=== PATIENT | female | born 1960 | race Two or more races ===

== ENCOUNTER 2024-07-12 10:12 | Emergency (ER) | payer MEDICAID, SELFPAY ==
[2024-07-12 10:41] VITALS: BP 129/72; PULSE 56; RESP 18; TEMP 36.5; O2SAT 97
[2024-07-12 10:49] VITALS: PULSE 88; RESP 20; BMI 27.4
--- NOTE | 2024-07-12 11:22 | EDNOTE_ITS ---
ED General RME/HPI General Chief complaint: Abdominal Pain Stated complaint: ABDOMINAL PAIN Time Seen by Provider: 07/12/24 11:17 Arrival date/time: 07/12/24 10:12 CC: Epigastric pain HPI be strong of epigastric pain onset at 8:00 this morning. The patient is a prior history of similar events that were all either from gallstones or from an inflamed pancreas. Patient was given fentanyl Zofran. And Tylenol and route. Currently patient has mild nausea pain is a 5 or 6 currently but was a 10 upon arrival. Related Data Previous Rx's ?Medication ?Instructions ?Recorded Sulfamethoxazole/Trimethoprim DS * 1 tab PO BID #14 tabs 12/11/14 (BACTRIM DS *) pantoprazole 20 mg tablet,delayed 20 mg PO QDAY #30 tabs 07/12/24 release (Protonix) Allergies Allergy/AdvReac Type Severity Reaction Status Date / Time NKA* Allergy Uncoded 12/11/14 15:07 Review of Systems Review of Systems Narrative Review of Systems: GEN: No fever, no chills, no weight loss EYES: No discharge, no visual changes, no pain HEENT: No ear pain, no congestion, no sore throat PULM: No shortness of breath, no cough, no congestion CV: No chest pain, no dyspnea on exertion, no palpitations GI: No nausea, no vomiting, no diarrhea, + pain, no constipation : No frequency, no urgency, no dysuria MUSC/SKEL: No joint pain, no back pain SKIN: No rash PSYCH: No hallucinations, no depression HEME/LYMPH: No easy bleeding or bruising tendencies NEURO: No weakness, no headache Past Medical History Past Medical History CARDIAC: Negative Congestive Heart Failure RESPIRATORY: Negative Chronic Obstructive Pulmonary Disease (COPD) GENITOURINARY: Negative Renal Disease ENDOCRINE: Negative Diabetes Mellitus Type 1 or Diabetes Mellitus Type 2 Family History FAMILY HISTORY: Negative Family Cardiac Disorders Social History SMOKING STATUS: Never smoker ED Exam Narrative Physical exam: [General: Obese in mild discomfort but not in any acute distress Head normocephalic HEENT: Within acceptable limits Neck is supple nontender Chest equal chest rise nontender to palpation Respiratory: Clear to auscultation no wheezes crackles or rubs CV: Rate rhythm is regular no murmurs rubs or clicks Abdomen is soft, epigastric pain with palpation no reflexive guarding rebound tenderness, no masses positive bowel sounds all 4 quadrants Back: No CVA tenderness no spinous process tenderness from cervical spine thoracic and lumbar spine Skin: Intact no petechiae rash induration ulceration or crepitus Extremities: Moving all extremity against resistance cap refill less than 2 seconds neurosensory intact Neuro: Awake alert oriented x3 Glascow coma 15 no focal deficits] Course Quality Measures none Orders Category Date Time Status EKG (ED ONLY) *Do not use* NOW Care 07/12/24 11:[address] abdomen pelvis wo con Stat Exams 07/12/24 12:45 Completed EKG (ED Only) Stat Exams 07/12/24 11:24 Ordered B-Type Natriuretic Peptide Stat Lab 07/12/24 11:45 Completed CBC Stat Lab 07/12/24 11:45 Completed Comprehensive Metabolic Panel Stat Lab 07/12/24 11:45 Completed Drug Screen,Urine Stat Lab 07/12/24 14:16 Received Lipase Stat Lab 07/12/24 11:45 Completed Magnesium Stat Lab 07/12/24 11:45 Completed Partial Thromboplastin Time Stat Lab 07/12/24 11:45 Completed Prothrombin Time with INR Stat Lab 07/12/24 11:45 Completed Troponin I Stat Lab 07/12/24 11:45 Completed Urinalysis Stat Lab 07/12/24 14:16 Completed Famotidine Inj [Pepcid Inj] Med 07/12/24 12:47 Discontinued 20 mg IVP X1 ONE mg Hyd/Al Hyd/Prasanth Susp [Maalox Susp] Med 07/12/24 12:47 Discontinued 30 ml PO X1 ONE Vital Signs Vital signs: Vital Signs Temperature 97.7 F 07/12/24 10:41 Pulse Rate 56 L 07/12/24 10:41 Respiratory Rate 18 07/12/24 10:41 Blood Pressure 129/72 07/12/24 10:41 Pulse Oximetry (%) 97 07/12/24 10:41 Oxygen Delivery Method Room Air 07/12/24 10:41 [facility] Patient data External records reviewed:: [facility] [place] records and EMS form Clinical information provided by:: patient and EMS Social determinants that could affect healthcare access:: none Patient has the following chronic illnesses:: None How is presenting disease/condition affected by chronic disease/condition?: u neffected by Evaluation data The following diagnostics were reviewed and interpreted by me:: lab results and radiology exam(s) Lab and/or radiology exams considered but not ordered:: CBC shows no acute leukocytosis anemia thrombocytopenia CMP shows no acute electrolyte imbalances renal impairment transaminitis or T. bili elevation Lipase is within acceptable limits CT of the abdomen pelvis shows the patient has suspected hepatocellular disease but no other acute finding requires emergent or immediate intervention. Urine is negative Interpretation Summary: Patient has no acute finding but has a decrease in pain secondary to medications given this time patient be discharged home with epigastric pain. Patient advised to not eat greasy spicy or fatty foods and take medications as prescribed Medications Medications considered but not ordered:: None Medication administrations:: Medication Administration History Discontinued Medications Al Hydrox/Mg Hydrox/Simethicone (Mg Hyd/Al Hyd/Prasanth (Maalox Reg) Susp 30 Ml Udc) 30 ml PO X1 ONE Stop: 07/12/24 12:48 Famotidine (Famotidine Inj 10 Mg/Ml Vial 2 Ml) 20 mg IVP X1 ONE Stop: 07/12/24 12:48 None Consultations Consultation(s) initiated? (list below): No Diagnosis Differential Diagnosis ED Complaint MDM: Cholelithiasis cholecystitis gastritis Most likely diagnosis given after review of the tests above:: Cholelithiasis, gastritis Admission Indicated Admission indicated?: not indicated Explain why admission is indicated or not indicated:: Stable for outpatient follow-up Admission Request Was there a request for admission?: No Disposition Plan Disposition Plan: Discharge Discharge Attestation Discharge Attestation: The patient and all family members were given an opportunity to ask questions and understood the discharge instructions. Discharge instructions specifically effects, indications for sooner follow up or return to the emergency department, and the expected course of current diagnosis. Patient condition: Stable Medical Decision Making Differential Diagnosis Differential Diagnosis: Cholelithiasis cholecystitis gastritis Lab Data 07/12/24 11:45 07/12/24 11:45 Labs: Lab Results 07/12/24 07/12/24 Range/Units 11:45 14:16 WBC 11.9 H (3.6-11.0) Thou/mm3 RBC 4.17 (4.00-5.20) Miln/mm3 Hgb 12.0 (12.0-16.0) g/dL Hct 36.4 (36.0-46.0) % MCV 87 (80-100) fL MCH 28.8 (25.0-35.0) pg MCHC 33.0 (31.0-37.0) g/dl RDW Std Deviation 41.8 (36.4-46.3) fL Plt Count 266 (140-440) Thou/mm3 Neut % (Auto) 79 (37-80) % Lymph % (Auto) 14 (10-50) % [place] % (Auto) 5 (0-12) % Eos % (Auto) 1 (0-10) % Baso % (Auto) 0 (0-2.5) % Neut # (Auto) 9.3 H (1.8-7.7) Thou/mm3 Lymph # (Auto) 1.7 (1.0-4.8) Thou/mm3 [place] # (Auto) 0.6 (0.0-0.8) Thou/mm3 Eos # (Auto) 0.2 (0.0-0.5) Thou/mm3 Baso # (Auto) 0.0 (0.0-0.2) Thou/mm3 Immature Gran # (Auto) 0.05 H (0.00-0.00) Thou/mm3 Absolute Nucleated RBC 0.00 (0.00-0.00) Thou/mm3 Immature Gran % 0 (0-0) % Nucleated RBC % 0 (0) /100 WBC PT 10.3 (9.0-12.2) Seconds INR 0.9 (0.9-1.3) APTT 25.3 (22.0-36.0) Seconds Sodium 136 (136-145) mMol/L Potassium 3.4 (3.4-5.1) mMol/L Chloride 108 H (98-107) mMol/L Carbon Dioxide 23.7 (20.0-31.0) mMol/L Anion Gap 4 L (7-16) BUN 19 (9-23) mg/dL Creatinine 0.4 L (0.6-1.3) mg/dL Estim Creat Clear Calc 130.2 (>60) mL/min eGFR > 60 (60 - ) See Note BUN/Creatinine Ratio 48 H (12-20) Ratio Glucose 102 (74-106) mg/dL Calculated Osmolality 274 L (275-295) Calcium 9.0 (8.3-10.6) mg/dL Corrected Calcium 9.0 (8.5-10.1) mg/dL Magnesium 1.9 (1.6-2.6) mg/dL Total Bilirubin 0.5 (0.3-1.2) mg/dL AST 49 H (0-34) U/L ALT 39 (10-49) U/L Alkaline Phosphatase 135 H (46-116) U/L Troponin I < 0.002 (0.0-0.045) ng/mL B-Natriuretic Peptide 40 (0-100) pg/mL Total Protein 6.9 (5.7-8.2) gm/dL Albumin 4.1 (3.4-4.8) gm/dL Globulin 2.8 (2.3-3.5) gm/dL Albumin/Globulin Ratio 1.5 (1.2-2.2) Lipase 26 (12-53) U/L Ur Collection Type Clean Catch Urine Color Lt-Yellow (Lt Yel-Yel) Urine Clarity Clear (Clear/Hazy) Urine pH 6.0 (5.0-7.0) Ur Specific Jones 1.020 (1.001-1.035) Urine Protein Negative (Neg - Trace) Urine Glucose (UA) Negative (Negative) Urine Ketones Negative (Negative) Urine Blood 1+ A (Negative) Urine Nitrite Negative (Negative) Urine Bilirubin Negative (Negative) Urine Urobilinogen (Auto) Negative (0.0-1.0) mg/dL Ur Leukocyte Esterase Positive (Negative) Urine RBC 6 H (0-3) /hpf Urine WBC 7 H (0-5) /hpf Ur Squamous Epith Cells 6 H (0-5) /hpf Urine Bacteria Rare (None) Discharge Plan Plan Patient Disposition: HOME (Self Care) Patient condition on transfer: Stable Prescriptions/Referrals Prescriptions/Med Rec: New pantoprazole [Protonix] 20 mg tablet,delayed release (DR/EC) 20 mg PO QDAY Qty: 30 0RF No Action Sulfamethoxazole/Trimethoprim DS * (BACTRIM DS *) 1 TAB tablet 1 tab PO BID Qty: 14 0RF Referrals: Aditya Herrera MD [Primary Care Provider] - In 1 week Problem List Clinical Impression: Gastroenteritis Patient/Caregiver Discharge Instructions Education Materials: ED Gastroenteritis, Noninfectious, ED Diet, [place] (Adult) Additional Instructions: Avoid greasy spicy fatty foods take the medication as prescribed there is a worsening of symptoms follow-up with your primary care provider or return the emergency room for reevaluation. Print Language: Tanzanian Stand Alone Forms: [employer] Award Info., Patient Portal Info Letter, Work/School Release PA/POWER LINEWORKER Supervising Physician VALERIO/POWER LINEWORKER Supervising Physician: David Howard ENP
[2024-07-12 11:54] LABS: Basophils % (Auto) 0 % (0-2.5); Eosinophils # (Auto) 0.2 Thou/mm3 (0.0-0.5); Eosinophils % (Auto) 1 % (0-10); Hematocrit 36.4 % (36.0-46.0); Immature Granulocytes % (Auto) 0 % (0-0); Immature Granulocytes Auto 0.05 Thou/mm3 (0.00-0.00); Lymphocytes # (Auto) 1.7 Thou/mm3 (1.0-4.8); Lymphocytes % (Auto) 14 % (10-50); Mean Corpuscular Hemoglobin 28.8 pg (25.0-35.0); Mean Corpuscular Volume 87 fL (80-100); Monocytes # (Auto) 0.6 Thou/mm3 (0.0-0.8); Monocytes % (Auto) 5 % (0-12); Neutrophils # (Auto) 9.3 Thou/mm3 (1.8-7.7); Neutrophils % (Auto) 79 % (37-80); Nucleated Red Blood Cell % 0 /100 WBC (0); Platelet Count 266 Thou/mm3 (140-440); RDW Standard Deviation 41.8 fL (36.4-46.3); Red Blood Count 4.17 Miln/mm3 (4.00-5.20); White Blood Count 11.9 Thou/mm3 (3.6-11.0)
[2024-07-12 12:14] LABS: INR 0.9 (0.9-1.3); Partial Thromboplastin Time 25.3 Seconds (22.0-36.0); Prothrombin Time 10.3 Seconds (9.0-12.2)
[2024-07-12 12:21] LABS: B-Type Natriuretic Peptide 40 pg/mL (0-100)
[2024-07-12 12:23] LABS: Alanine Aminotransferase 39 U/L (10-49); Albumin, Serum 4.1 gm/dL (3.4-4.8); Albumin/Globulin Ratio 1.5 (1.2-2.2); Alkaline Phosphatase 135 U/L (46-116); Anion Gap 4 (7-16); Aspartate Amino Transferase 49 U/L (0-34); BUN/Creatinine Ratio 48 Ratio (12-20); Bilirubin,Total 0.5 mg/dL (0.3-1.2); Blood Urea Nitrogen 19 mg/dL (9-23); Carbon Dioxide 23.7 mMol/L (20.0-31.0); Chloride 108 mMol/L (98-107); Creatinine (Component) 0.4 mg/dL (0.6-1.3); Estimated Creatinine Clearance 130.2 mL/min (>60); Globulin 2.8 gm/dL (2.3-3.5); Glucose 102 mg/dL (74-106); Lipase 26 U/L (12-53); Magnesium 1.9 mg/dL (1.6-2.6); Osmolality,Calculated 274 (275-295); Potassium 3.4 mMol/L (3.4-5.1); Sodium 136 mMol/L (136-145); Total Protein 6.9 gm/dL (5.7-8.2); Troponin I < 0.002 ng/mL (0.0-0.045); eGFR > 60 See Note
--- NOTE | 2024-07-12 12:45 | XR_ITS ---
Examination: CT abdomen and pelvis without contrast. Coronal 3-D reconstructions. Sagittal 2-D reconstructions. Date and time of exam:July 12, 2024 1342 hours INDICATIONS: Onset upper abdominal pain beginning 3 days ago CTDI: vol (mGy): 8.4 DLP: (mGycm): 479 Technique: Axial images of the abdomen have been obtained, 3 mm slice thickness Intravenous contrast material has not been administered. Low dose protocols were performed. One or more of the following dose reduction techniques were used; automated exposure control, adjustment of the mA and/or KV according to patient size, use of iterative reconstruction technique. Findings: Liver mildly irregular in contour Cholelithiasis Spleen not enlarged No pancreatic or adrenal mass No renal or ureteral calculi, no hydronephrosis No pericecal inflammatory change Colonic diverticulosis, no diverticulitis Partially retroverted uterus with no pelvic mass Bladder intact Grade 1 spondylolisthesis L5 on S1 IMPRESSION: Suspect primary hepatocellular disease Cholelithiasis, recommend hepatobiliary sonography follow-up No CT findings of appendicitis bowel obstruction or diverticulitis
[2024-07-12 14:36] LABS: Collection Type, Urine Clean Catch
[2024-07-12 14:45] LABS: Bacteria,Urine Rare; Bilirubin,Urine Negative (Negative); Blood,Urine 1+ (Negative); Clarity,Urine Clear (Clear/Hazy); Color,Urine Lt-Yellow (Lt Yel-Yel); Glucose, Urine Negative (Negative); Ketones,Urine Negative (Negative); Leukocyte Esterase,Urine Positive (Negative); Nitrite,Urine Negative (Negative); Protein,Urine Negative (Neg - Trace); RBC,Urine 6 /hpf (0-3); Squamous Epithelial Cell,Urine 6 /hpf (0-5); Urobilinogen,Urine Negative mg/dL (0.0-1.0); WBC,Urine 7 /hpf (0-5)
[2024-07-12 15:00] LABS: Amphetamine/Methamp Scrn,U Negative (Negative); Barbiturate Screen,Urine Negative (Negative); Benzodiazepines Screen,Urine Negative (Negative); Benzoylecgonine Screen, Ur Negative (Negative); Fentanyl Screen,Urine Positive (Negative); Opiate Screen,Urine Negative (Negative); THC Screen,Urine Negative (Negative)
== END 2024-07-12 15:44 | disposition home or self-care (01) ==
PROVIDERS: Registered Nurse General Practice; Emergency Provider Emergency Medicine; PCP Family Medicine
DX: K52.9 Noninfective gastroenteritis and colitis, unspecified (principal)
CPT/HCPCS: 36415; 74176; 80053; 80307; 81001; 83690; 83735; 83880; 84484; 85025; 85610; 85730; 93005; 99284

== ENCOUNTER 2024-12-05 18:31 | Emergency (ER) | payer MEDICAID, SELFPAY ==
[2024-12-05 18:33] VITALS: BMI 29.6
[2024-12-05 19:16] VITALS: BP 146/72; PULSE 68; RESP 17; TEMP 36.8; O2SAT 96
--- NOTE | 2024-12-05 19:33 | XR_ITS ---
Examination: Foot, right, 3 views Technique: AP, oblique, lateral views foot, 3 views Date and time of exam: December 05, 2024 1930 hrs. Indications: Patient fell today with injury to foot, foot pain. Findings: Fracture distal aspect proximal phalanx fourth digit No significant displacement Impression: Fracture distal aspect proximal phalanx fourth digit without significant displacement
--- NOTE | 2024-12-05 19:33 | XR_ITS ---
EXAMINATION: Ankle, right 3 views . Technique: Ankle AP, oblique, lateral 3 views Date and time of exam: December 05, 2024, 1950 hrs. Indications: Injury to the ankle today, ankle pain. Findings: Lateral malleolar soft tissue swelling No fracture or ankle dislocation Impression: No fracture or ankle dislocation
--- NOTE | 2024-12-05 19:34 | EDNOTE_ITS ---
Lower Extremity Injury RME/HPI General Chief Complaint: Ankle/Foot Injury Stated Complaint: R FOOT PAIN S/P FALL TODAY Time Seen by Provider: 12/05/24 19:08 Arrival date/time: 12/05/24 18:31 Limitations: no limitations RME / HPI RME / HPI Narrative: 64-year-old female with past medical history of GERD presents for evaluation of right foot and ankle pain status post trip and inversion at home. She reports that she was walking when she tripped on a rug and twisted her ankle. No head trauma or LOC. Denies radiating pain, back pain, neck pain, visual changes, numbness, tingling. Denies taking analgesics prior to arrival to the ED. MD complaint: ankle injury Onset (ago): hour(s) Type of Injury: inversion Place: home Related Data Previous Rx's ?Medication ?Instructions ?Recorded Sulfamethoxazole/Trimethoprim DS * 1 tab PO BID #14 ta bs 12/11/14 (BACTRIM DS *) pantoprazole 20 mg tablet,delayed 20 mg PO QDAY #30 ta bs 07/12/24 release (Protonix) Allergies Allergy/AdvReac Type Severity Reaction Status Date / Time No Known Allergies Allergy Verified 12/05/24 18:33 Review of Systems Constitutional Constitutional: Denies body ache(s), Denies chills and Denies night sweats Eyes Eyes: Denies blurry vision and Denies change in vision ENT Ears, Nose, Mouth, and Throat: Denies dizziness, Denies ear discharge, Denies neck pain and Denies vertigo Cardiovascular Cardiovascular: Denies chest pain, Denies dyspnea, Denies irregular heart rhythm and Denies palpitations Respiratory Respiratory: Denies cough, Denies dyspnea and Denies wheezing Gastrointestinal Gastrointestinal: Denies nausea and Denies vomiting Musculoskeletal Musculoskeletal: Reports arthralgias (Right foot and right ankle pain.), Denies back pain, Denies neck pain, Denies numbness, Denies radiating pain into limb, Denies stiffness and Denies tingling Integumentary/Breasts Skin/Breast: Denies change in pigmentation, Denies lesions and Denies wounds Neurologic Neurologic: Denies dizziness, Denies numbness, Denies radicular pain, Denies tingling and Denies vertigo Endocrine Endocrine: Denies palpitations Allergic/Immunologic Allergic/Immunologic: Denies wheezing Past Medical History Past Medical History CARDIAC: Negative Congestive Heart Failure RESPIRATORY: Negative Chronic Obstructive Pulmonary Disease (COPD) GENITOURINARY: Negative Renal Disease ENDOCRINE: Negative Diabetes Mellitus Type 1 or Diabetes Mellitus Type 2 Family History FAMILY HISTORY: Negative Family Cardiac Disorders Social History SMOKING STATUS: Never smoker ED Exam General Limitations: Present no limitations General appearance: Present alert and in no apparent distress Head Head exam: Present atraumatic and normocephalic Eye Eye exam: Present normal appearance, PERRL and EOMI ENT ENT exam: Present mucous membranes moist Neck Neck exam: Present normal inspection and full ROM Chest Chest inspection: Present normal inspection and symmetric chest wall rise Respiratory Respiratory exam: Present normal lung sounds bilaterally; Absent respiratory distress Cardiovascular Cardiovascular exam: Present regular rate and +S1 Abdominal Exam Abdominal exam: Present soft; Absent distention Expanded Lower Extremity Exam Upper leg exam: Present normal inspection Knee exam: Present normal inspection and full ROM Lower leg exam: Present normal inspection and full ROM; Absent tenderness or s welling Ankle exam: Present tenderness (Mild tenderness in swelling right lateral malleolus with no overlying ecchymosis.) Foot/toe exam: Present tenderness (Mild tenderness to palpation right lateral foot.); Absent swelling, ecchymosis, crepitus, calcaneal tenderness or tenderness at base of 5th metatarsal Neurovascular/Tendon exam: Present normal capillary refill; Absent pulse deficit Gait: not tested/not observed Back Exam Back exam: Present normal inspection and full ROM Neurological Exam Neurological exam: Present alert Psychiatric Psychiatric exam: Present normal affect Skin Skin exam: Present warm and dry Course Quality Measures none Orders Category Date Time Status XR ankle comp RT min 3V Stat Exams 12/05/24 19:33 Completed XR foot comp RT min 3V Stat Exams 12/05/24 19:33 Completed HYDROcodone*/APAP 5/325 [[place] 5/325] Med 12/05/24 19:33 Discontinued 1 tab PO X1 ONE Vital Signs Vital signs: Vital Signs Temperature 98.3 F 12/05/24 19:16 Pulse Rate 68 12/05/24 19:16 Respiratory Rate 17 12/05/24 19:16 Blood Pressure 146/72 H 12/05/24 19:16 Pulse Oximetry (%) 96 12/05/24 19:16 Oxygen Delivery Method Room Air 12/05/24 19:16 Pulse ox 96% on room air, within normal limits. Extremity Injury, Lower MDM Narrative MDM Narrative:: 64-year-old female presents for evaluation of right foot and ankle pain following an inversion injury today. Vital signs reassuring. X-ray significant for fracture to distal aspect of right foot fourth digit without significant displacement. Patient was put in pato tape dressing and given [place] in the department which improved her symptoms. Ultimately she was discharged with plan to follow-up outpatient with orthopedics within the week for further evaluation and treatment. I advised her to take Tylenol and ibuprofen as needed every 6 hours for pain. Patient stable at time discharge. Patient data External records reviewed:: [facility] previous records Clinical information provided by:: patient Social determinants that could affect healthcare access:: none Patient has the following chronic illnesses:: None reported. How is presenting disease/condition affected by chronic disease/condition?: no chronic disease Evaluation data The following diagnostics were reviewed and interpreted by me:: radiology exam(s) Lab and/or radiology exams considered but not ordered:: Considered not ordered. Interpretation Summary: Fracture distal phalanx of fourth digit of right foot without significant displacement on right foot x-ray. Medications / Prescriptions Medications or Prescriptions considered but not ordered:: Rx given. Medication administrations:: Medication Administration History Discontinued Medications Hydrocodone Bitart/Acetaminophen (Hydrocodone/Apap 5/325 Tablet) 1 tab PO X1 ONE Stop: 12/05/24 19:34 Last Admin: 12/05/24 21:03 Dose: 1 tab Documented By: SILVIA Rx given. Consultations Consultation(s) initiated? (list below): No Diagnosis Extremity Injury, Lower Differential Diagnosis: ankle sprain and strain, puncture wound of foot, fracture of toe, ankle fracture and other Most likely diagnosis given after review of the tests above:: Right fourth toe fracture Admission Indicated Admission indicated?: not indicated Admission Request Was there a request for admission?: No Disposition Plan Disposition Plan: Discharge Discharge Attestation Discharge Attestation: The patient and all family members were given an opportunity to ask questions and understood the discharge instructions. Discharge instructions specifically effects, indications for sooner follow up or return to the emergency department, and the expected course of current diagnosis. Patient condition: Stable Discharge Plan Plan Patient Disposition: HOME (Self Care) Disposition Comment: stable Prescriptions/Referrals Prescriptions/Med Rec: No Action Sulfamethoxazole/Trimethoprim DS * (BACTRIM DS *) 1 TAB tablet 1 tab PO BID Qty: 14 0RF pantoprazole [Protonix] 20 mg tablet,delayed release (DR/EC) 20 mg PO QDAY Qty: 30 0RF Referrals: No Primary/Family,Physician [Primary Care Provider] - In 1 week Problem List Clinical Impression: Fracture of toe, Acute ankle pain Impression comment: Fracture of distal fourth phalanx without significant displacement. Use pato tape on fourth toe for the next several days. Take Tylenol or ibuprofen every 6 hours as needed for pain. Follow-up with primary care within the next week for reevaluation. If your symptoms do not improve follow-up with orthopedic surgery (Dr. Nirav Bowers) for reevaluation. Patient/Caregiver Discharge Instructions Other Activity Instructions:: Fracture of distal fourth phalanx without significant displacement. Use pato tape on fourth toe for the next several days. Take Tylenol or ibuprofen every 6 hours as needed for pain. Follow-up with primary care within the next week for reevaluation. If your symptoms do not improve follow-up with orthopedic surgery (Dr. Nirav Bowers) for reevaluation. Education Materials: ED Fracture, Toe, Closed Print Language: Macanese Stand Alone Forms: Mag[employer] Award Info., Work/School Release, Patient Portal Info Letter PA/STILL OPERATOR Supervising Physician PA/STILL OPERATOR Supervising Physician: Dr. Hazel
[2024-12-05] MEDS: HYDROcodone/APAP 5/325 TABLET 1 TAB PO (21:03)
== END 2024-12-05 21:16 | disposition home or self-care (01) ==
PROVIDERS: Emergency Provider Emergency Medicine
DX: S92.511A Displaced fracture of proximal phalanx of right lesser toe(s), initial encounter for closed fracture (principal); W01.0XXA Fall on same level from slipping, tripping and stumbling without subsequent striking against object, initial encounter; Y93.01 Activity, walking, marching and hiking; K21.9 Gastro-esophageal reflux disease without esophagitis
CPT/HCPCS: 73610; 73630; 99283; A9270